=== PATIENT | male | born 1940 | race Caucasian/White ===

== ENCOUNTER 2016-12-04 13:45 | Emergency (ER) | payer OTHER, BC ==
[~2016-12-04] VITALS: Ht 182.9 cm; Wt 76.9 kg
[2016-12-04 13:50] VITALS: TEMP 36.7; Ht 182.9 cm; Wt 76.9 kg
--- NOTE | 2016-12-04 15:18 | EMERGENCY ROOM VISIT NOTE ---
History Report prepared by Vince: Henry Shepard Under the Supervision of: Dr. Asher Emery D.O. First contact with patient: 14:55 Chief Complaint: SHORTNESS OF BREATH Stated Complaint: SOB Nursing Triage Summary: triage note: pt reports shortness of breath since this am. pt reports he was seen by dr owens today and sent to ed for further eval. History of Present Illness The patient is a 76 year old male who presents to the Emergency Room with complaints of an episode of shortness of breath that started around 0730 this morning. He says that the episode lasted all morning, and during the episode, he had constant chest tightness. The patient states that he went to see his family doctor (Dr. Owens) around 2 and a half hours ago, and the doctor suggested that the patient be scanned here for any heart damage. The patient states that currently, he is asymptomatic, and nothing made his symptoms better or worse. He denies any nausea, vomiting, neck pain, back pain, coughing, abdominal pain, leg swelling or leg pain. The patient notes that he has a history of an irregular heartbeat, and last had a stress test a month ago. He notes no recent surgeries or illnesses, nor any history of clots in his leg or lung. He also denies any history of a heart attack. The patient takes daily medications for his diabetes and thyroid issue. He notes that he takes Victoza, but has lost a lot of weight recently, and his electrician journeyman wireman mentioned 2 weeks ago that if the patient's weight dropped below 170, that he would be taken off of the Victoza. Today, the patient weighed 171 at the doctor's office while heavily dressed. = Source of History: patient Onset: 0730 this morning Position: other (global - shortness of breath) Symptom Intensity: all morning Timing: other (episode) Associated Symptoms: + chest pain, No cough, No neck pain, No nausea, No vomiting, No abdominal pain, No back pain Note: Associated symptoms: Currently asymptomatic. Denies leg swelling or leg pain. Review of Systems See HPI for pertinent positives & negatives. A total of 10 systems reviewed and were otherwise negative. Past Medical & Surgical Medical Problems: (1) Diabetes (2) Irregular heart beat Family History Family history omitted secondary to patient's advanced age. Social History Smoking Status: Never Smoker Marital Status: Housing Status: lives with family Occupation Status: employed Current/Historical Medications Scheduled Omeprazole (Prilosec), 40 MG PO DAILY Allergies Uncoded Allergies: MACROBIDES, ERYTHROMYCIN (Allergy, Unknown, 05/29/02) N (Allergy, Unknown, 05/29/02) Physical Exam Vital Signs Date Time Temp Pulse Resp B/P (MAP) Pulse Ox O2 Delivery O2 Flow Rate FiO2 12/04/16 19:02 56 147/70 99 12/04/16 19:00 56 147/70 100 Room Air 12/04/16 16:55 66 20 124/68 99 Room Air 12/04/16 15:20 97 Room Air 12/04/16 15:19 97 Room Air 12/04/16 15:19 97 Room Air 12/04/16 15:05 72 12/04/16 13:50 36.7 88 18 108/71 97 Room Air Physical Exam GENERAL: Patient is awake, alert, and in no acute distress. Patient is resting comfortably and showing no signs of anxiety EYES: The conjunctivae are clear. The pupils are round and reactive. EARS, NOSE, MOUTH AND THROAT: The nose is without any evidence of any deformity. Mucous membranes are moist tongue is midline NECK: The neck is nontender and supple. RESPIRATORY: Normal respiratory effort is noted there is no evidence of wheezing rhonchi or rales CARDIOVASCULAR: Regular rate and rhythm noted there no murmurs rubs or gallops normal S1 normal S2 GASTROINTESTINAL: The abdomen is soft. Bowel sounds are present in all quadrants. Abdomen is nontender MUSCULOSKELETAL/EXTREMITIES: There is no evidence of gross deformity full range of motion is noted in the hips and shoulders SKIN: Trace pedal edema bilaterally. NEUROLOGIC: Patient is awake alert and oriented x3. Medical Decision & Procedures ER Provider Diagnostic Interpretation: X-ray results as stated below per interpretation by me and the radiologist. CHEST ONE VIEW PORTABLE CLINICAL HISTORY: 76 years-old Male presenting with CHEST PAIN. TECHNIQUE: Portable upright AP view of the chest was obtained. COMPARISON: None. FINDINGS: Cardiomediastinal silhouette normal. Focal hyperdensity in the right upper lung may represent a calcified granuloma. No other focal infiltrate. No pleural effusion or pneumothorax. Osseous structures normal. Upper abdomen normal. IMPRESSION: 1. No acute cardiopulmonary disease. 2. Suspected right upper lobe calcified granuloma. Electronically signed by: Adal Call M.D. 12/04/2016 3:49 PM Dictated Date/Time: 12/04/2016 3:48 PM Laboratory Results 12/04/16 15:30 Red Blood Count 4.23, Mean Corpuscular Volume 92.0, Mean Corpuscular Hemoglobin 32.6, Mean Corpuscular Hemoglobin Concent 35.5, Mean Platelet Volume 8.5, Neutrophils (%) (Auto) 62.2, Lymphocytes (%) (Auto) 25.7, Monocytes (%) (Auto) 9.6, Eosinophils (%) (Auto) 1.7, Basophils (%) (Auto) 0.6, Neutrophils # (Auto) 2.93, Lymphocytes # (Auto) 1.21, Monocytes # (Auto) 0.45, Eosinophils # (Auto) 0.08, Basophils # (Auto) 0.03 12/04/16 15:30 Test 12/04/16 15:30 12/04/16 17:25 White Blood Count 4.71 K/uL (4.8-10.8) Red Blood Count 4.23 M/uL (4.7-6.1) Hemoglobin 13.8 g/dL (14.0-18.0) Hematocrit 38.9 % (42-52) Mean Corpuscular Volume 92.0 fL (80-100) Mean Corpuscular Hemoglobin 32.6 pg (25-34) Mean Corpuscular Hemoglobin Concent 35.5 g/dl (32-36) Platelet Count 206 K/uL (130-400) Mean Platelet Volume 8.5 fL (7.4-10.4) Neutrophils (%) (Auto) 62.2 % Lymphocytes (%) (Auto) 25.7 % Monocytes (%) (Auto) 9.6 % Eosinophils (%) (Auto) 1.7 % Basophils (%) (Auto) 0.6 % Neutrophils # (Auto) 2.93 K/uL (1.4-6.5) Lymphocytes # (Auto) 1.21 K/uL (1.2-3.4) Monocytes # (Auto) 0.45 K/uL (0.11-0.59) Eosinophils # (Auto) 0.08 K/uL (0-0.5) Basophils # (Auto) 0.03 K/uL (0-0.2) RDW Standard Deviation 41.0 fL (36.4-46.3) RDW Coefficient of Variation 12.1 % (11.5-14.5) Immature Granulocyte % (Auto) 0.2 % Immature Granulocyte # (Auto) 0.01 K/uL (0.00-0.02) Prothrombin Time 11.5 SECONDS (9.0-12.0) Prothromb Time International Ratio 1.1 (0.9-1.1) Activated Partial Thromboplast Time 24.8 SECONDS (21.0-31.0) Partial Thromboplastin Ratio 1.0 Anion Gap 4.0 mmol/L (3-11) Est Creatinine Clear Calc Drug Dose 58.7 ml/min Estimated GFR () 68.6 Estimated GFR (Non- 59.2 BUN/Creatinine Ratio 17.3 (10-20) Calcium Level 9.1 mg/dl (8.5-10.1) Total Bilirubin 0.4 mg/dl (0.2-1) Direct Bilirubin 0.1 mg/dl (0-0.2) Aspartate Amino Transf (AST/SGOT) 20 U/L (15-37) Alanine Aminotransferase (ALT/SGPT) 27 U/L (12-78) Alkaline Phosphatase 55 U/L (45-117) Total Creatine Kinase 195 U/L (39-308) Creatine Kinase MB 3.8 ng/ml (0.5-3.6) Creatine Kinase MB Ratio 1.9 (0-3.0) Total Protein 7.4 gm/dl (6.4-8.2) Albumin 3.7 gm/dl (3.4-5.0) Lipase 380 U/L (73-393) Troponin I < 0.015 ng/ml (0-0.045) Laboratory results per my review. ECG Indication: SOB/dyspnea Rate (beats per minute): 62 Rhythm: sinus rhythm Findings: 1st degree AV block, no ectopy, other (no acute ST segment abnormalities) Comparison ECG Date: no prior available Change: 2nd ECG: Sinus bradycardia at 52 bpm, no ectopy, no acute ST segment abnormalities, no change from earlier tracing. ED Course 1502: The patient was evaluated in room A10. A complete history and physical examination were performed. 1735: I reevaluated and updated the patient. 8: Upon reevaluation, the patient is resting. I discussed the results and treatment plan with him. He verbalized agreement of the treatment plan. He was discharged home. Medical Decision Differential diagnosis: Etiologies such as infections, reactive airway disease, pneumonia, pneumothorax , COPD, CHF, cardiac ischemia, pulmonary embolism, musculoskeletal, gastrointestinal, as well as others were entertained. Nursing notes reviewed. The patient is a 76-year-old male who presented to the emergency apartment for an evaluation of chest pain. The patient had an episode of chest pain earlier which had since resolved. The patient had an EKG which did not show any acute ischemia. His initial cardiac biomarkers were negative. The patient also had repeat cardiac biomarkers as well as repeat EKG. No significant change was noted. I discussed the patient's laboratory and radiographic studies with him. I also discussed the limitations of the emergency department workup for chest pain with him. He was encouraged to rest and avoid any strenuous activity. He was also encouraged to follow-up with his primary care physician for further evaluation but return to the emergency Department immediately if symptoms change worsen or the need arises. Medication Reconcilliation Current Medication List: was personally reviewed by me Medication reconciliation was done at bedside with patient's paperwork because it was not done in the computer. Blood Pressure Screening Patient's blood pressure: Normal blood pressure Impression Primary Impression: Chest pain Scribe Attestation The scribe's documentation has been prepared under my direction and personally reviewed by me in its entirety. I confirm that the note above accurately reflects all work, treatment, procedures, and medical decision making performed by me. Departure Information Dispostion Home / Self-Care Prescriptions Omeprazole (PRILOSEC) 40 Mg Cap 40 MG PO DAILY, #30 CAP Prov: Asher Emery, 12/04/16 Referrals No Doctor, Assigned (PCP) Patient Instructions ED Chest Pain Atypical Unkn Cause, My [facility] Additional Instructions Continue all medications as prescribed. Rest and avoid any strenuous activity. Follow-up with your doctor for further evaluation. Return to the emergency apartment immediately if symptoms change worsen or need arises. Problem Qualifiers Primary Impression: Chest pain Chest pain type: unspecified Qualified Codes: R07.9 - Chest pain, unspecified
[2016-12-04 15:19] VITALS: O2SAT 97
[2016-12-04 15:48] LABS: BASO % 0.6 %; BASO ABS # 0.03 K/uL (0-0.2); COMPLETE YES; EOS % 1.7 %; HEMATOCRIT 38.9 % (42-52); IG% 0.2 %; LYMPH % 25.7 %; LYMPH ABS # 1.21 K/uL (1.2-3.4); MEAN CORPUSCULAR HEMOGLOBIN 32.6 pg (25-34); MEAN CORPUSCULAR HGB CONC 35.5 g/dl (32-36); MEAN PLATELET VOLUME 8.5 fL (7.4-10.4); MONO % 9.6 %; NEUT % 62.2 %; PLATELET COUNT 206 K/uL (130-400); RED BLOOD COUNT 4.23 M/uL (4.7-6.1); WHITE BLOOD COUNT 4.71 K/uL (4.8-10.8)
--- NOTE | 2016-12-04 15:50 | DIAGNOSTIC IMAGING REPORT ---
CHEST ONE VIEW PORTABLE CLINICAL HISTORY: 76 years-old Male presenting with CHEST PAIN. TECHNIQUE: Portable upright AP view of the chest was obtained. COMPARISON: None. FINDINGS: Cardiomediastinal silhouette normal. Focal hyperdensity in the right upper lung may represent a calcified granuloma. No other focal infiltrate. No pleural effusion or pneumothorax. Osseous structures normal. Upper abdomen normal. IMPRESSION: 1. No acute cardiopulmonary disease. 2. Suspected right upper lobe calcified granuloma. Electronically signed by: Adal Call M.D. 12/04/2016 3:49 PM Dictated Date/Time: 12/04/2016 3:48 PM
[2016-12-04 16:00] LABS: INR 1.1 (0.9-1.1); PROTHROMBIN TIME (PATIENT) 11.5 SECONDS (9.0-12.0)
[2016-12-04 16:08] LABS: ALT/SGPT 27 U/L (12-78); AST/SGOT 20 U/L (15-37); BLOOD UREA NITROGEN 21 mg/dl (7-18); BUN/CREATININE RATIO 17.3 (10-20); CALCIUM 9.1 mg/dl (8.5-10.1); CARBON DIOXIDE 29 mmol/L (21-32); CHLORIDE 107 mmol/L (98-107); GLUCOSE 113 mg/dl (70-99); POTASSIUM 3.5 mmol/L (3.5-5.1); SODIUM 140 mmol/L (136-145)
[2016-12-04 16:13] LABS: ALKALINE PHOSPHATASE 55 U/L (45-117); CKMB/CK RATIO 1.9 (0-3.0)
[2016-12-04] MEDS ORDERED: OMEP40CA41 PO (18:31)
[2016-12-04 19:02] VITALS: BP 147/70; PULSE 56; O2SAT 99
== END 2016-12-04 19:03 | disposition home or self-care (01) ==
LOC: C.EDB 13:45 → C.EDA 19:03
DX: R07.9 Chest pain, unspecified (principal); I44.0 Atrioventricular block, first degree; E11.9 Type 2 diabetes mellitus without complications; Z79.899 Other long term (current) drug therapy; Z88.8 Allergy status to other drugs, medicaments and biological substances

== ENCOUNTER 2021-10-12 10:11 | Inpatient (IN) ==
[2021-10-12] MEDS ORDERED: fentaNYL citrate 100 MCG/2 ML VIAL ONE ×4 (10:31→16:51)
[2021-10-12] MEDS ORDERED: MIDAZOLAM HCL 5 MG/ML 1 ML VIAL ONE (10:31)
--- NOTE | 2021-10-12 10:37 | History & Physical Bridge Note ---
Date of Service October 12, 2021 History & Physical Bridge Note I have examined the patient, reviewed the History & Physical and in the interval since the performance of the History & Physical I have noted the following changes of clinical significance: no changes noted
--- NOTE | 2021-10-12 10:37 | Pre Anesthesia Assessment ---
Date of Service October 12, 2021 Pre Sedation Assessment Vital Signs Temp Pulse Resp BP Pulse Ox 10/12/21 10:24 36.6 C 110 H 16 165/129 H 99 Cardiovascular RRR, no murmur, no edema Additional Comments: pvc Respiratory normal respiratory effort, lungs clear to auscultation Pre-Sedation Airway Assessment Smoking Status: Former smoker Hx Sleep Apnea: No Short, Thick Neck: No Thyromental Distance: > or= 3.5 Finger Breadths Oral Cavity: + Dentures Mallampati Class: III ASA: ASA3 NPO Status Date of Last Intake of Fluids: 10/12/21 Time of Last Intake of Fluids: 07:00 Date of Last Intake of Solid Food: 10/11/21 Procedure Planning Contraindications for Sedation: none Current Medications Reviewed: Yes Notes The planned sedation has been discussed with the patient. Informed Consent was obtained. I have identified the patient, determined the appropriateness of sedation and have assessed the patient immediately prior to the procedure. All medicine(s) and interventions are by my order.
[2021-10-12] MEDS ORDERED: MIDAZOLAM HCL 1 MG/ML 2ML VIAL ONE ×4 (11:51→16:50)
[2021-10-12] MEDS ORDERED: HEPARIN (PORCINE) 1000 UNIT/ML 10 ML (CATH LAB USE ONLY) ONE (12:32)
[2021-10-12] MEDS ORDERED: hydrALAZINE HCL 20 MG/ML VIAL ONE (13:42)
[2021-10-12] MEDS ORDERED: STAT IV Infusion **Titration per Protocol STA (14:32)
[2021-10-12] MEDS ORDERED: AMIODARONE / D5W 150 MG/100 ML BAG IV STA (14:32)
[2021-10-12] MEDS ORDERED: 0.2 MICRON FILTER SET 1 EA IV ONE (14:32)
[2021-10-12] MEDS ORDERED: AMIODARONE IV BOLUS & DRIP IV STA (14:32)
--- NOTE | 2021-10-12 14:37 | Operative Report ---
Post Operative Report Pre & Post Diagnosis Pre: PVC and RVOT VT Post Same Operation Date: 10/12/21 11:00 <No data on this case meets the specified criteria> I identified the patient and participated in the time-out.: Yes Procedure Operation Date: 10/12/21 11:00 Actual Procedures p EPS + Ablation +3D Map for VT - Ruthie Cornejo DO Surgeon Ruthie Cornejo, Piano Machine Operator none Estimated Blood Loss 15 Findings Consistent with Post-Op Diagnosis Specimens none Description of Procedure see official report I attest to the content of the Intraoperative Record and any orders documented therein. Any exceptions are noted below.
--- NOTE | 2021-10-12 14:38 | Post Anesthesia Assessment ---
Date of Service October 12, 2021 Post Sedation Assessment Vital Signs Temp Pulse Resp BP Pulse Ox 10/12/21 10:24 36.6 C 110 H 16 165/129 H 99 Recovery Score Activity: Moves 4 extremities Respiration: Deep Breath/Cough Circulation: +/-20% PreAnes Value Consciousness: Fully Awake Oxygen Saturation: > 92% On Room Air Discharge Sedation Level of Care: Fast Track Phase II Post Sedation Plan On clinical assessment, the patient appears to have tolerated the sedation without complications. Patient is recovering as anticipated. Patient will continue to be monitored by nursing and may be discharged when sedation discharge criteria are met per below protocol. Upon Completions of procedure up to 15 minutes continue every 5 minute vital signs and the P.A.R. score; then discharge to a Phase I or Fast Track to Phase I I per the following guidelines: * Discharge Patient to appropriate Phase II area if PAR is 8 or greater or return to pre- procedure baseline. The post - procedure orders will be as directed. * If PAR score is less than 8 or not return to pre-procedure baseline then patient will follow Phase I monitoring till PAR is reached for Phase II. The Phase I may be done in procedure room or may call to secure a Phase I area. * If naloxone or flumazenil are used for reversal, hold in Phase I for continued monitoring from when last reversal dose was given for a minimum of 60 minutes or longer pending the nurse and/or physician discretion of patient condition before discharge to Phase II. Please call the Sedation Physician to re-evaluate and complete post-note for discharge to Phase II area. Do NOT discharge from procedure sedation or Phase 1 until post- sedation evaluation note is complete by procedure /sedation MD Sedation Discharge Instructions to be given to the patient at discharge to home.
[2021-10-12] MEDS ORDERED: AMIODARONE / D5W 360 MG/200 ML BAG IV ONE (14:42)
[2021-10-12] MEDS ORDERED: AMIODARONE 150MG / 100ML D5W (CATH LAB USE ONLY) ONE (14:55)
[2021-10-12] MEDS ORDERED: AMIODARONE 360MG / 200ML D5W (CATH LAB USE ONLY) ONE (14:55)
[2021-10-12] MEDS ORDERED: ONDANSETRON INJ 2 MG/ML 2 ML VIAL ONE (16:18)
[2021-10-12 17:20] LABS: Albumin Globulin Ratio 1.6 (0.9-2); Albumin Level 3.4 gm/dl (3.4-5.0); BUN Creatinine Ratio 18.9 (10-20); Bilirubin,Total 0.6 mg/dl (0.2-1.0); Calcium 7.4 mg/dl (8.5-10.1); Creatinine Clr Calc Pharmacy 67.2 ml/min; Est GFR (African American) 87.9 ml/min; Est GFR (Non-African American) 75.8 ml/min; Globulin 2.1 gm/dl (2.5-4.0); Potassium 3.7 mmol/L (3.5-5.1); Total Protein 5.5 gm/dl (6.0-8.3)
[2021-10-12 17:32] LABS: Hematocrit (blood only) 34.2 % (42-52); Hemoglobin 11.8 g/dL (14.0-18.0); Mean Corpuscular Hemoglobin 32.4 pg (25-34); Mean Platelet Volume 9.6 fL (7.4-10.4); Platelet Count 216 K/uL (130-400); RDW Coefficient of Variation 12.3 % (11.5-14.5); RDW Standard Deviation 41.7 fL (36.4-46.3); Red Blood Count 3.64 M/uL (4.7-6.1); White Blood Count 15.81 K/uL (4.8-10.8)
[2021-10-12 17:37] LABS: Mean Corpuscular Hgb Conc 34.5 g/dL (32-36)
[2021-10-12] MEDS ORDERED: ATROPINE SULFATE 0.1 MG/ML 10ML SYR IV ONE (17:51)
--- NOTE | 2021-10-12 17:55 | Post Operative Brief Note ---
Cardiology Brief Post Op Date of Surgery October 12, 2021 Pre & Post Diagnosis Pre: pericardial effusion Post: same Operation Date: 10/12/21 11:00 <No data on this case meets the specified criteria> Operation Date: 10/12/21 17:00 <No data on this case meets the specified criteria> Procedure Urgent pericardialcentesis Port Engineer Ruthie Cornejo, DO Fish Peddler none Estimated Blood Loss 250 Findings Consistent with Post-Op Diagnosis
[2021-10-12] MEDS ORDERED: PHARMACY GLYCEMIC MGMT CONSULT PRN (18:04)
[2021-10-12] MEDS ORDERED: ICU PROTOCOL FOR HYPERGLYCEMIA PRN (18:04)
[2021-10-12 18:14] LABS: Basophils # (auto) 0.02 K/uL (0-0.2); Basophils % (auto) 0.1 %; Eosinophils # (auto) 0.02 K/uL (0-0.5); Eosinophils % (auto) 0.1 %; Immature Granulocytes # (auto) 0.03 K/uL (0.00-0.02); Immature Granulocytes % (auto) 0.2 %; Lymphocytes # (auto) 1.21 K/uL (1.2-3.4); Lymphocytes % (auto) 7.7 %; Monocytes # (auto) 1.07 K/uL (0.11-0.59); Monocytes % (auto) 6.8 %; Neutrophils # (auto) 13.46 K/uL (1.4-6.5); Neutrophils % (auto) 85.1 %
[2021-10-12] MEDS ORDERED: ACETAMINOPHEN 1000 MG/100 ML IV IV PRN (18:23)
[2021-10-12] MEDS ORDERED: ONDANSETRON INJ 2 MG/ML 2 ML VIAL IV PRN (18:25)
[2021-10-12] MEDS ORDERED: GLUCOSE 10 TABS/TUBE PO PRN (18:30)
[2021-10-12] MEDS ORDERED: CARBOHYDRATES FOR HYPOGLYCEMIA PO PRN (18:30)
[2021-10-12] MEDS ORDERED: GLUCOSE 40% GEL 15 GM TUBE PO PRN (18:30)
[2021-10-12] MEDS ORDERED: GLUCAGON FOR INJ 1 MG VIAL IM PRN (18:30)
[2021-10-12] MEDS ORDERED: DEXTROSE 50% 50 ML SYRINGE IV PRN (18:30)
[2021-10-12] MEDS ORDERED: ceFAZolin 2000MG 2,000 MG/15 ML SYR IV ONE (19:00)
[2021-10-12] MEDS: ACETAMINOPHEN 1,000 MG/100 ML VIAL IV PRN (19:00)
--- NOTE | 2021-10-12 19:27 | Critical Care Consultation ---
Date of Consultation October 12, 2021 Assessment & Plan (1) Admitted to intensive care unit: Reason Critically Ill: 81-year-old male who is status post pericardial drain placement in the setting of pericardial effusion with tamponade physiology requiring close hemodynamic monitoring. NEURO - * CAM ICU: NEGATIVE * Pain: Fentanyl and acetaminophen as needed CARDIAC/VASCULAR - * Pericardial effusion with findings of tamponade: * s/p pericardial drain placement. * Patient's chest pain and hypotension improved s/p pericardial drain. * Continue to monitor output for any significant increase throughout the night. * Continue to monitor on telemetry. * Frequent PVCs s/p ablation: * Patient appears to be in sinus rhythm on monitor currently. * Continue to monitor for any return of frequent PVCs. * HTN/HLD: * Hold on home meds for now. * Monitor on telemetry. RESPIRATORY - * No h/o pulmonary disease. * Saturating well on 2 L GI/NUTRITION - * NPO tonight RENAL/LYTES - * No significant electrolyte derangements. * Patient received aggressive IVF earlier. Will hold for now. - * Hughes in place - Strict I&Os. ENDO - * DMII * BSGs per unit protocol. ISS --> gtt per unit policy. HEME - * Stable H&H * Trend H&H in the setting of hemopericardium ID - * No immediate concerns for infection at this time. * Trend fever curve. LINES/IV ACCESS - * PIVs x2 * Pericardial drain. * Hughes DVT PROPHYLAXIS - * Hold on chemoprophylaxis s/p pericardial drain w/ hemopericardium. * SCDs I have personally spent 42 minutes of critical care time in the direct management of this patient. This is a life/limb threatening event. This includes time spent evaluating patient, direct bedside care, chart review, placing orders, interpretation of diagnostic studies, discussion with consultants, patient, and family members, as well as other required patient management activities. This time is exclusive of all separately billable procedures, and teaching time and separate from and in addition to any other critical care service time. Thank you for allowing us to participate in the care of this patient. Please re huang to my attending physician's documentation for any further recommendations. (2) Pericardial effusion: (3) Cardiac tamponade: (4) Hypertension: (5) Hyperlipidemia: (6) Diabetes: (7) Hypothyroid: History of Present Illness Attending Physician: Ruthie Cornejo, History of Present Illness Patient is a 81-year-old male with significant past medical history of hypothyroidism, venous insufficiency, type 2 diabetes, hypertension, hyperlipidemia, and a sending aortic aneurysm. Patient has been having ongoing symptoms of shortness of breath with exertion and fatigue. Additionally, patient has had documented PVCs with increasing frequency as well as a drop in h is EF. This prompted reevaluation by electrophysiology who recommends PVC ablation which the patient underwent today. Patient has appeared to have success with PVC ablation, however, while in holding area, patient was noted to have increasing chest pain and hypotension. Stat echocardiogram was performed which demonstrated large pericardial effusion with tamponade physiology. Patient was taken back to the catheterization suite where he underwent placement of pericardial drain. Patient had approximately 200 mL out immediately. Since that drainage has significantly decreased. Patient brought to the ICU for ongoing management status post pericardial drain placement. Upon evaluation in the ICU, the patient is awake, alert, and oriented. He complains of pain in his back and upper chest area. He reports that these are the same symptoms prior to going back to the catheterization suite. He reports that the symptoms have significantly improved. He initially rated his discomfort a 9/10, but status post pericardial drain, he rates his pain a 3 or 4. He does complain of some nausea and hunger. Otherwise his primary complaints are upper chest and upper back pain which have improved. Patient currently denies complaints of headaches, dizziness, lightheadedness, palpitations, visual disturbances, vomiting, abdominal pain, or numbness/weakness to his extremities. Allergies Allergy/AdvReac Type Severity Reaction Status Date / Time erythromycin base AdvReac Rash Verified 10/12/21 14:33 nitrofurantoin AdvReac Rash Verified 10/12/21 14:33 [From Macrobid] Home Medications Medication Instructions Recorded Confirmed Type amiodarone 200 mg tablet 200 mg PO DAILY #30 tab 10/12/21 Rx aspirin 81 mg tablet,delayed 81 mg PO DAILY 10/12/21 10/12/21 History release atorvastatin 20 mg tablet 20 mg PO DAILY 10/12/21 10/12/21 History cyanocobalamin (vitamin B-12) 1,000 mcg PO DAILY 10/12/21 10/12/21 History 1,000 mcg tablet cyclosporine 0.09 % eye drops in a 1 drp OPHTHALMIC (EYE) Q12H 10/12/21 10/12/21 History dropperette ergocalciferol (vitamin D2) 1,000 25 mcg PO DAILY 10/12/21 10/12/21 History unit capsule insulin glargine 100 unit/mL (3 18 unit SUBCUT PM 10/12/21 10/12/21 History mL) subcutaneous pen (Lantus Solostar U-100 Insulin) levothyroxine 125 mcg capsule 125 mcg PO DAILY 10/12/21 10/12/21 History losartan 50 mg tablet 50 mg PO DAILY 10/12/21 10/12/21 History metformin 500 mg tablet,extended 1,000 mg PO BID 10/12/21 10/12/21 History release 24 hr omega-3 fatty acids 1,250 mg PO DAILY 10/12/21 10/12/21 History omeprazole 20 mg capsule,delayed 20 mg PO DAILY 10/12/21 10/12/21 History release polyethylene glycol 3350 17 gram 17 g PO BID 10/12/21 10/12/21 History oral powder packet (Miralax) semaglutide (Ozempic) 0.5 mg SUBCUT WK 10/12/21 10/12/21 History triamcinolone acetonide 0.1 % 1 applic TOPICAL BID PRN 10/12/21 10/12/21 History topical cream Patient History Social History Smoking Status: Former smoker Hx Alcohol Use: Yes Hx Substance Use: No Current Living Situation: Spouse Feels Safe at Home: Yes Safety Concerns: Feels Safe At This Time Review of Systems Review of Systems: A complete 10 point review of systems was reviewed with the patient with pertinent positives and negatives as per history of present illness. All else were negative. Physical Exam Physical Exam: VITAL SIGNS - Vital signs and nursing notes were reviewed. GENERAL - 81-year-old male appearing his stated age who is in no acute distress. Communicates well with provider and answers questions appropriately. HEAD - NC/AT. EYES - PERRL with EOMI bilaterally. Sclera anicteric. Palpebral conjunctiva pink and moist with no injection noted. EARS - No deformities of external structures noted on gross examination bilaterally. NOSE - Midline and without cyanosis. MOUTH/OROPHARYNX - Without perioral cyanosis. Buccal mucosa pink and moist and without leukoplakia. NECK - Neck with FROM. Supple to palpation. LUNGS - Chest wall symmetric without accessory muscle use, intercostals retractions, or central cyanosis. Normal vesicular breath sounds CTA B/L. No wheezes, rales, or rhonchi appreciated. CARDIAC - Pericardial drain in place with bloody drainage from the tube as expected. Dressing site clean, dry, and intact. RRR with S1/S2. No murmur, rubs, or gallops appreciated. No reproducible tenderness to palpation appreciated over the anterior chest wall. ABDOMEN - Abdominal contour flat without pulsations or visible masses. BS normoactive all four quadrants. No tenderness, palpable masses, hepatosplenomegaly, or ascites noted. EXTREMITIES - No clubbing or peripheral cyanosis. No pretibial edema present. +3/5 radial and dorsalis pedis pulses palpated throughout. +5/5 strength noted in UE/LE bilaterally. NEUROLOGIC - Cranial nerves II through XII grossly intact. Sensory intact to light touch throughout. PSYCH - A&Ox3 and cooperates fully with examiner. Pt is very pleasant and interacts well with examiner. Results & Data Results & Data ([facility]) Vital Signs (Past 12 Hours) Vital Signs Temp Pulse Pulse Resp BP BP Pulse Ox 10/12/21 18:45 83 22 97 10/12/21 18:35 36.8 C 10/12/21 18:32 85 13 143/73 H 92 10/12/21 18:31 85 6 L 92 10/12/21 16:46 80 18 83/47 L 98 10/12/21 16:30 83 18 76/45 L 98 10/12/21 16:15 80 18 80/46 L 97 10/12/21 16:00 82 18 78/51 L 98 10/12/21 15:45 78 18 88/48 L 96 10/12/21 15:30 85 18 84/61 L 96 10/12/21 15:15 79 18 91/60 L 96 10/12/21 15:05 84 18 100/63 96 10/12/21 14:45 93 H 18 117/67 98 10/12/21 10:24 36.6 C 110 H 16 165/129 H 99 Coding Level of Care Code Critical Care 1st 30-74 mins Diagnoses Admitted to intensive care unit Z78.9 Pericardial effusion I31.3 Cardiac tamponade I31.4 Hypertension I10 Hyperlipidemia E78.5 Diabetes E11.9 Hypothyroid E03.9 Time Spent (min) 42
[2021-10-12] MEDS ORDERED: fentaNYL citrate 100 MCG/2 ML VIAL IV PRN (19:38)
[2021-10-12] MEDS ORDERED: AMIODARONE / D5W 360 MG/200 ML BAG IV SCH (20:45)
[2021-10-12] MEDS: LANTUS PER UNIT CHARGE SQ SCH (21:14)
[2021-10-12] MEDS: INSULIN ASPART PER UNIT SC SCH (21:15)
[2021-10-13] MEDS: fentaNYL citrate 100 MCG/2 ML VIAL IV PRN ×2 (05:06→08:53)
[2021-10-13 05:55] LABS: Basophils # (auto) 0.01 K/uL (0-0.2); Basophils % (auto) 0.1 %; Hematocrit (blood only) 35.7 % (42-52); Hemoglobin 12.3 g/dL (14.0-18.0); Immature Granulocytes # (auto) 0.03 K/uL (0.00-0.02); Immature Granulocytes % (auto) 0.2 %; Lymphocytes # (auto) 0.98 K/uL (1.2-3.4); Lymphocytes % (auto) 7.1 %; Mean Corpuscular Hgb Conc 34.5 g/dL (32-36); Mean Corpuscular Volume 95.7 fL (80-100); Mean Platelet Volume 8.9 fL (7.4-10.4); Monocytes # (auto) 1.48 K/uL (0.11-0.59); Monocytes % (auto) 10.8 %; Neutrophils # (auto) 11.23 K/uL (1.4-6.5); Neutrophils % (auto) 81.8 %; Platelet Count 189 K/uL (130-400); RDW Coefficient of Variation 12.3 % (11.5-14.5); RDW Standard Deviation 42.8 fL (36.4-46.3); Red Blood Count 3.73 M/uL (4.7-6.1); White Blood Count 13.73 K/uL (4.8-10.8)
[2021-10-13 06:23] LABS: BUN Creatinine Ratio 16.3 (10-20); Calcium 8.1 mg/dl (8.5-10.1); Creatinine Clr Calc Pharmacy 61.3 ml/min; Est GFR (African American) 78.8 ml/min; Magnesium 1.1 mg/dl (1.7-2.4); Potassium 3.9 mmol/L (3.5-5.1)
[2021-10-13] MEDS: LEVOTHYROXINE SODIUM 125 MCG TABLET PO SCH (06:43)
--- NOTE | 2021-10-13 07:18 | XRay Report ---
SINGLE VIEW CHEST CLINICAL HISTORY: Dyspnea FINDINGS: An AP, portable, upright chest radiograph is compared to study dated 12/04/2016. The examina tion is degraded by portable technique and patient rotation. The heart is mildly enlarged. The pulmo nary vasculature is noncongested. There is mild elevation of the right hemidiaphragm with bibasilar a telectasis. The lungs and pleural spaces are otherwise clear. No pneumothorax is seen. The skeletal s tructures are osteopenic. The bony thorax is grossly intact. IMPRESSION: Mild cardiomegaly with no acute cardiopulmonary abnormality identified. ACT 112: Negative or not required by law. Electronically signed by: Cirilo Green M.D. 10/13/2021 7:17 AM
[2021-10-13] MEDS: INSULIN ASPART PER UNIT SC SCH ×4 (07:50→17:43)
[2021-10-13] MEDS: MAGNESIUM SULFATE / D5W 1 GM/100 ML BAG IV SCH ×2 (07:50→09:04)
--- NOTE | 2021-10-13 07:53 | XRay Report ---
XR chest 1V portable CLINICAL HISTORY: f/u COMPARISON STUDY: Chest radiograph October 12, 2021. FINDINGS: Lung volumes are mildly diminished. Mild left basilar retrocardiac opacity is noted. Additi onal linear bibasilar opacities reflect atelectasis. No evidence for pulmonary edema. There is mild c ardiomegaly. IMPRESSION: 1. Left basilar opacity which could reflect pneumonia or atelectasis. Radiographic follow up to ensur e resolution is recommended. Additional linear bibasilar opacities reflect atelectasis. 2. Mild cardiomegaly. No evidence for pulmonary edema. ACT 112: Negative or not required by law. Electronically signed by: Rigoberto Jasso M.D. 10/13/2021 7:52 AM
--- NOTE | 2021-10-13 09:05 | Electrocardiogram Report ---
Test Reason : Blood Pressure : / mmHG Vent. Rate : 084 BPM Atrial Rate : 084 BPM P-R Int : 236 ms QRS Dur : 154 ms QT Int : 434 ms P-R-T Axes : 058 -53 055 degrees QTc Int : 512 ms Sinus rhythm with 1st degree A-V block Right bundle branch block Left anterior fascicular block Abnormal ECG When compared with ECG of 04-DEC-2016 17:20, Vent. rate has increased BY 32 BPM (RBBB and left anterior fascicular block) is now Present Confirmed by Omid Sánchez ([id number]) on 10/13/2021 9:05:33 AM Referred By: Ruthie Cornejo Confirmed By:Omid Sánchez
--- NOTE | 2021-10-13 09:22 | Operative Report (OR) ---
DATE OF PROCEDURE: 10/12/2021. PREOPERATIVE DIAGNOSES: Premature ventricular contractions and right ventricular outflow tract ventricular tachycardia. POSTOPERATIVE DIAGNOSES: Premature ventricular contractions and right ventricular outflow tract ventricular tachycardia. PROCEDURE: 3D mapping of PVCs in the right ventricular outflow tract and the left ventricular outflow tract and PVC ablation under fluoroscopic guidance, 3D mapping of the His bundle region. SURGEON: Ruthie Cornejo DO. DRAWER WAXER: None. ANESTHESIA: Monitored conscious sedation administered under my supervision by Isi Rojas. Start time 1113, end time 1430. A total of 11 mg of Versed, 250 mcg of fentanyl. INTRAVENOUS FLUIDS: 700 mL. ANTIBIOTICS: None. CONTRAST: None. CONDITION: Good. COMPLICATIONS: A delayed pericardial effusion. BLOOD LOSS: 10 mL. URINE OUTPUT: Not applicable. SPECIMENS: None. FINDINGS: See below. DRAINS: None. 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 CONSENT: Consent was obtained prior to the patient going into the electrophysiology lab. The patient was informed of the risks, benefits, and alternatives to the procedure. Risks include, but not limited to, sudden cardiac , cardiac arrhythmias, cerebrovascular accident, myocardial infarction, injury to the blood vessels, chamber of the heart or the [place] electrical system where he would need a permanent pacemaker, bleeding and infection. The patient understood these risks and agreed to the procedure as planned. Informed consent was obtained. DESCRIPTION OF PROCEDURE: The patient was brought into the electrophysiology lab in a fasting state. He was connected to continuous cardiac monitoring. A time- out was performed to ensure patient identity and procedure correctly. He was prepped and draped over the bilateral groins in normal surgical standard fashion. Monitored conscious sedation was given throughout the procedure for patient's comfort level. [place] precautions were maintained throughout the procedure. 10 mL of 1% lidocaine were given in the right femoral groin for local anesthesia. Then, using the modified Seldinger technique, venous access was obtained through a needlestick without any problems. A guidewire was inserted without any resistance. Then, a short 8-Monegasque sheath was inserted over the guidewire without any resistance. Then, a PentaRay catheter was advanced, I was having difficulty getting it up into the RVOT. I ended up swapping out my short 8-Monegasque sheath for a long SRO sheath. This helped a little bit and I was able to do a little bit of RVOT 3D mapping of the PVCs using the PentaRay. The earlier sites were around the posterior septal side of the RVOT. I then swapped out for the ablation catheter, which was a 4-mm DF curved ThermoCool SmartTouch catheter and 3D map to His bundle cloud.. I then did further 3D mapping of the RVOT. There were times where I had pre-QRS of about 20 milliseconds and somewhat decent unipolar QS signal and my pace maps were not bad, they were in the mid 90s. The first time I had when on ablation at 35 portillo, I did suppress and looked like almost got rid off the PVCs. I stayed on the circulation for about a minute and then gave a few more chambers in that area and then the PVCs did start returning about 3-4 minutes, so I did further mapping and we did go a little bit more posterior in the RVOT septal site on either side and I gave some more chambers, occasionally to that I had some decent signals, but it seemed that I still was having a few occasional PVCs. So, then I opted to confirm that may be I was just suppressing them and they were more stemming from the left side of the outflow tract. So, I then got right femoral arterial access without any problems and the guidewire was inserted without any resistance. An 8-Monegasque sheath was inserted through the guidewire without any resistance. Guidewire and dilator removed. Then, the ablation catheter was advanced retrograde through the aorta. Of note, the patient at this point had already gotten a 1000 of IV heparin and ACTs were monitored throughout the case from thereon. I then gave 3D mapping of the LVOT and I found that I was sometimes a little bit earlier, maybe 25-30 milliseconds and I did not have the best QS signal in my unipolars, but in this more earlier spot that was right across from where I had burnt from the RVOT, I did give 2-4 very short radiofrequency ablations at 30 portillo, but these never suppressed the PVCs, so I opted to go back to the RVOT. I went back into the RVOT. I was still having difficulty swapping the catheter up into the RVOT probably due to his moderate tricuspid regurg. I ended up swapping out the sheath for an SR1, came back in and started doing more 3D mapping along the posterior wall area. Again, a little bit more posterior on the septum likely more chambers at 35 portillo. Of note, his blood pressure remained stable throughout the case and then towards the end of the case, his blood pressure was actually elevated in the 200s and he was having more PVCs. I finally after multiple attempts opted to abort the case. So, I swapped the SR1 sheath out for a short 8-Monegasque sheath and then the sheaths were left in the groin as his ACT was still on the higher side and he was brought into the holding area. It was later in hold about 40 minutes after the case in holding that his blood pressure had dropped. It did coincide right around the time when I gave him IV amiodarone bolus, so an ultrasound stat echo was performed, which did show a moderate pericardial effusion. Unfortunately, he was never tachycardia and his blood pressure was on the low side sometimes systolic mainly in the 80s. Please defer to the rest of the second op note about further treatment for the pericardial effusion. IMPRESSION: 1. Partially successful PVC ablation from the right ventricular outflow tract, but of note, it seems that after the pericardial effusion was tapped, his PVCs actually resolved, so it may have been more successful than I realized. 2. Pericardial effusion, pending tamponade. PLAN: Again, the patient was initially doing fine when he left the lab that was in holding when he started showing evidence of pericardial tamponade. Again, please refer to the other op note for pericardiocentesis and the patient will be admitted to the ICU. Initially, again, I was giving him amiodarone, but then after the treatment with pericardiocentesis, it seems that the PVCs have resolved. We will get another limited echo in the morning. His groin sheaths were pulled once the ACT was less than 150 and manual compression was used to establish hemostasis. Job ID: [id number] [facility]
--- NOTE | 2021-10-13 09:23 | Critical Care Progress Note ---
Date of Service October 13, 2021 Assessment & Plan (1) Admitted to intensive care unit: Plan: Reason Critically Ill: 81-year-old male who is status post pericardial drain placement in the setting of pericardial effusion with tamponade physiology requiring close hemodynamic monitoring. NEURO - * CAM ICU: NEGATIVE * Pain: Fentanyl and acetaminophen as needed CARDIAC/VASCULAR - * Pericardial effusion with findings of tamponade: * s/p pericardial drain removed * Continue to monitor on telemetry. * Frequent PVCs s/p ablation: * Patient appears to be in sinus rhythm on monitor currently. * Continue to monitor for any return of frequent PVCs. * HTN/HLD: * restart home meds for now. * Monitor on telemetry. RESPIRATORY - * No h/o pulmonary disease. * Saturating well on 2 L GI/NUTRITION - * regular diet RENAL/LYTES - * No significant electrolyte derangements. * Patient received aggressive IVF earlier. Will hold for now. - * Hughes in place - Strict I&Os. ENDO - * DMII * BSGs per unit protocol. ISS --> gtt per unit policy. HEME - * Stable H&H * Trend H&H in the setting of hemopericardium ID - * No immediate concerns for infection at this time. * Trend fever curve. LINES/IV ACCESS - * PIVs x2 DVT PROPHYLAXIS - * Hold on chemoprophylaxis s/p pericardial drain w/ hemopericardium. * SCDs stable for downgrade out of ICU (2) Pericardial effusion: (3) Cardiac tamponade: (4) Hypertension: (5) Hyperlipidemia: (6) Diabetes: (7) Hypothyroid: Admission and Anticipated Discharge Date Admission Date: October 12, 2021 Subjective Patient requesting food no chest pain nor shortness of breath Physical Exam Physical Exam: General: Alert. nontoxic. Skin: Warm, dry, Head: Atraumatic Ears, nose, mouth and throat: airway patent Cardiovascular: Normal peripheral perfusion Chest: No shadowing on dressing Respiratory: no respiratory distress Gastrointestinal: Non distended Musculoskeletal: No deformity Results & Data Results & Data ([facility]) Vital Signs (Past 12 Hours) Vital Signs Temp Pulse Resp BP Pulse Ox 10/13/21 08:00 37.2 C 76 23 122/70 96 10/13/21 07:00 94 H 23 122/71 98 10/13/21 06:00 74 24 117/63 95 06/30/22 05:00 83 18 130/82 96 10/13/21 04:00 37 C 74 15 107/68 94 10/13/21 03:00 69 14 136/75 95 10/13/21 02:00 72 13 132/71 94 10/13/21 01:00 84 19 137/77 95 10/13/21 00:00 81 19 133/72 97 10/12/21 23:00 79 16 120/68 96 10/12/21 22:00 81 21 125/76 97 Critical Care Results & Data Vital Signs (Past 12 Hours) Vital Signs Temp Pulse Resp BP Pulse Ox 10/13/21 08:00 37.2 C 76 23 122/70 96 10/13/21 07:00 94 H 23 122/71 98 10/13/21 06:00 74 24 117/63 95 10/13/21 05:00 83 18 130/82 96 10/13/21 04:00 37 C 74 15 107/68 94 10/13/21 03:00 69 14 136/75 95 10/13/21 02:00 72 13 132/71 94 10/13/21 01:00 84 19 137/77 95 10/13/21 00:00 81 19 133/72 97 10/12/21 23:00 79 16 120/68 96 10/12/21 22:00 81 21 125/76 97 Lab & Micro Results (Past 24 Hours) RBC 3.73 M/uL (4.7-6.1) L 10/13/21 WBC 13.73 K/uL (4.8-10.8) H 10/13/21 Hgb 12.3 g/dL (14.0-18.0) L 10/13/21 Hct 35.7 % (42-52) L 10/13/21 MCV 95.7 fL (80-100) 10/13/21 MCH 33.0 pg (25-34) 10/13/21 MCHC 34.5 g/dL (32-36) 10/13/21 RDW Standard Deviation 42.8 fL (36.4-46.3) 10/13/21 RDW Coefficient of Variation 12.3 % (11.5-14.5) 10/13/21 Plt Count 189 K/uL (130-400) 10/13/21 MPV 8.9 fL (7.4-10.4) 10/13/21 Neutrophils (%) (Auto) 81.8 % 10/13/21 Lymphocytes (%) (Auto) 7.1 % 10/13/21 Monocytes # (Auto) 1.48 K/uL (0.11-0.59) H 10/13/21 Eosinophils # (Auto) 0.00 K/uL (0-0.5) 10/13/21 Immature Granulocyte % (Auto) 0.2 % 10/13/21 Neutrophils # (Auto) 11.23 K/uL (1.4-6.5) H 10/13/21 Lymphocytes # (Auto) 0.98 K/uL (1.2-3.4) L 10/13/21 Monocytes # (Auto) 1.48 K/uL (0.11-0.59) H 10/13/21 Eosinophils # (Auto) 0.00 K/uL (0-0.5) 10/13/21 Basophils # (Auto) 0.01 K/uL (0-0.2) 10/13/21 Immature Granulocyte # (Auto) 0.03 K/uL (0.00-0.02) H 10/13/21 Na 136 mmol/L (136-145) 10/13/21 K 3.9 mmol/L (3.5-5.1) 10/13/21 Cl 102 mmol/L (98-107) 10/13/21 CO2 27 mmol/L (21-32) 10/13/21 Anion Gap 7 (3-11) 10/13/21 BUN 17 mg/dl (6-23) 10/13/21 Creatinine 1.04 mg/dl (0.6-1.4) 10/13/21 Estimated GFR ( Amer) 78.8 ml/min 10/13/21 Estimated GFR (Non-Af Amer) 68.0 ml/min 10/13/21 BUN/Creatinine Ratio 16.3 (10-20) 10/13/21 Glu 136 mg/dl (70-99(Fasting)) H 10/13/21 Ca 8.1 mg/dl (8.5-10.1) L 10/13/21 Phosphorus Level 3.0 mg/dl (2.5-4.9) 10/13/21 Total Bilirubin 0.6 mg/dl (0.2-1.0) 10/12/21 AST 32 U/L (13-39) 10/12/21 ALT 16 U/L (7-52) 10/12/21 Alkaline Phosphatase 33 U/L (34-104) L 10/12/21 TP 5.5 gm/dl (6.0-8.3) L 10/12/21 Albumin 3.4 gm/dl (3.4-5.0) 10/12/21 Globulin 2.1 gm/dl (2.5-4.0) L 10/12/21 Albumin/Globulin Ratio 1.6 (0.9-2) 10/12/21 Mg 1.1 mg/dl (1.7-2.4) L 10/13/21 05:40 10/13/21 Calcium Level 8.1 mg/dl (8.5-10.1) L 10/13/21 05:40 10/13/21 Diagnostic Findings (Past 24 Hours) Chest X-Ray 10/12/21 22:01 SINGLE VIEW CHEST CLINICAL HISTORY: Dyspnea FINDINGS: An AP, portable, upright chest radiograph is compared to study dated 12/04/2016. The examination is degraded by portable technique and patient rotation. The heart is mildly enlarged. The pulmonary vasculature is noncongested. There is mild elevation of the right hemidiaphragm with bibasilar atelectasis. The lungs and pleural spaces are otherwise clear. No pneumothorax is seen. The skeletal structures are osteopenic. The bony thorax is grossly intact. IMPRESSION: Mild cardiomegaly with no acute cardiopulmonary abnormality identified. ACT 112: Negative or not required by law. Electronically signed by: Cirilo Green M.D. 10/13/2021 7:17 AM Chest X-Ray 10/13/21 07:00 XR chest 1V portable CLINICAL HISTORY: f/u COMPARISON STUDY: Chest radiograph October 12, 2021. FINDINGS: Lung volumes are mildly diminished. Mild left basilar retrocardiac opacity is noted. Additional linear bibasilar opacities reflect atelectasis. No evidence for pulmonary edema. There is mild cardiomegaly. IMPRESSION: 1. Left basilar opacity which could reflect pneumonia or atelectasis. Radiographic follow up to ensure resolution is recommended. Additional linear bibasilar opacities reflect atelectasis. 2. Mild cardiomegaly. No evidence for pulmonary edema. ACT 112: Negative or not required by law. Electronically signed by: Rigoberto Jasso M.D. 10/13/2021 7:52 AM I & O Totals 24 Hours 10/12/21 10/13/21 10/14/21 06:59 06:59 06:59 Intake Total 317.105 / 317.105 61.667 / 61.667 Output Total 1385 / 1385 75 / 75 Balance -1067.895 / -1067.895 -13.333 / -13.333 Cumulative 09/21/21 10:09 thru 10/13/21 09:11 Intake Total 378.772 Output Total 1460 Balance -1081.228 RT Ventilator Mngmt (Last Documented) Ventilator Ordered Settings Respiratory Rate 23 10/13/21 08:00 Ventilator - PT Measurements Respiratory Rate 23 Coding Level of Care Code 65454 Subseq Obs Care Lvl 3 Diagnoses Admitted to intensive care unit Z78.9 Pericardial effusion I31.3 Cardiac tamponade I31.4 Hypertension I10 Hyperlipidemia E78.5 Diabetes E11.9 Hypothyroid E03.9
--- NOTE | 2021-10-13 09:35 | Operative Report (OR) ---
DATE OF PROCEDURE: 10/12/2021. PREOPERATIVE DIAGNOSES: Pericardial effusion after premature ventricular contractions ablation. POSTOPERATIVE DIAGNOSES: Pericardial effusion after premature ventricular contractions ablation. PROCEDURE: Semi-emergent pericardiocentesis under fluoroscopic and echocardiogram imaging. SURGEON: Ruthie Cornejo DO. ASSISTANT PROFESSOR OF DRAMA: None. ANESTHESIA: Monitored conscious sedation administered under my supervision by Isi Rojas. Start time 1714, end time 1748, a total of 25 mcg of fentanyl. INTRAVENOUS FLUIDS: 1500 mL. ANTIBIOTICS: None. COMPLICATIONS: None. CONDITION: Stable. URINE OUTPUT: Not applicable. SPECIMENS: None. DRAINS: None. IV FLUIDS: Deferred to the nursing notes. BLOOD LOSS: Total of 300 mL. CONSENT: Consent was obtained prior to the patient going into the cardiac ammunition assembly ii laborer. Of note, the trevor tineo has some conscious sedation from the PVC ablation, so I took the consent through his with the nursing staff confirming it, informing them that the potential risks are injury to the blood vess els. DESCRIPTION OF PROCEDURE: The patient was brought into the cardiac ammunition assembly ii laborer in a fasting state. He was connected to continuous cardiac monitoring. A time-out was performed to ensure patient identity and procedure correctly. He was prepped and draped over the subxiphoid area and the left chest area in a normal surgical standard fashion. Monitored conscious sedation was given throughout the procedu re for patient's comfort level, unit precautions were maintained throughout the procedure. 10 mL of 1% lidocaine were given for local anesthesia in the subxiphoid area. Then, using the perica rdiocentesis kit under fluoroscopic guidance as well as echocardiogram guidance, a pericardiocentesis was performed. I started getting blood return with my needle and then I passed a wire up and under x-ray confirmed that the wire was in the pericardium and not in the right ventricle, as well as I saw this under echocardiogram. Then, a dilator was advanced over the guidewire and then that was remove d and a pigtail catheter was advanced up into the pericardium. Then, the wire was pulled out and I hui hen connected the pigtail catheter to the bag and was able to pull off about 250 mL right away after 100 mL seeing an increase in his aortic pressure right away and improvement of the effusion under flu oroscopic guidance. Ultimately, I pulled off about 250 mL. I then sutured down the pigtail catheter and then placed a dressing over it. We then placed the pigtail catheter to kind of like a pseudo-pr essure bag and I did probably pull off the last remaining 100 mL of blood. I did another few ultraso und pictures on with the agricultural engineering technician and saw that the effusion was all gone. It was at this point that the patient's ACT was down, so we pulled the femoral arterial and femoral vein in his groin site joseph t was there from the ablation catheter. IMPRESSION: Successful semi-emergent pericardiocentesis under fluoroscopic guidance along with echoc ardiogram guidance. We will admit to the ICU, antibiotics given Ancef since he has had multiple proc edures now today. Of note, I also have not seen any PVCs. Job ID: [id number]
--- NOTE | 2021-10-13 09:35 | Cardiology Progress Note ---
Date of Service October 13, 2021 Assessment & Plan (1) Pericardial effusion: (2) Cardiac tamponade: Plan: The pericardial catheter was successfully removed this morning. I think later this morning if the patient remained stable a diet can be started. Also if all goes well he can be out of bed later today. He has had no ectopy on telemetry. Overall he is doing well. I would plan on him remaining in the hospital through today. Admission and Anticipated Discharge Date Admission Date: October 12, 2021 Subjective The patient did well overnight. He had about a 100 cc of pericardial bloody fluid after the catheter was placed in the ICU. Minimal drainage this morning. The echocardiogram is markedly improved. No current complaints. Review of Systems Review of Systems: Review of Systems: See HPI for pertinent positives. All other 10 point review of systems are negative. Physical Exam Physical Exam: General: no acute distress and stated age Head: normocephalic, no masses, lesions, tenderness or abnormalities Eyes: conjunctiva are pink and non-injected, sclera clear Neck: supple, no adenopathy, no bruits, normal jugular venous pulse, no hepato jugular reflux Chest: normal shape and normal respiratory effort Lungs: clear to auscultation and percussion Cardiac Exam: - regular rate & rhythm, no murmurs gallops or rubs - normal S1, normal S2, pericardial catheter in good position Pulses: 2(+) throughout Abdomen: abdomen soft, non-tender, no abnormal masses and no hepatosplenomegaly Musculoskeletal: no gait disturbance, no joint inflammation, no deforming arthritis Extremities: no edema and no cyanosis Neuro: grossly normal exam Results & Data ([facility]) Vital Signs (Past 12 Hours) Vital Signs Temp Pulse Resp BP Pulse Ox 10/13/21 08:00 37.2 C 76 23 122/70 96 10/13/21 07:00 94 H 23 122/71 98 10/13/21 06:00 74 24 117/63 95 10/13/21 05:00 83 18 130/82 96 10/13/21 04:00 37 C 74 15 107/68 94 10/13/21 03:00 69 14 136/75 95 10/13/21 02:00 72 13 132/71 94 10/13/21 01:00 84 19 137/77 95 10/13/21 00:00 81 19 133/72 97 10/12/21 23:00 79 16 120/68 96 10/12/21 22:00 81 21 125/76 97 Laboratory Results Laboratory Results - last 24 hr 10/12/21 10/12/21 10/12/21 12:50 13:05 13:17 WBC RBC Hgb Hct MCV MCH MCHC RDW Std Deviation RDW Coeff of [place] Plt Count MPV Immature Gran % (Auto) Neut % (Auto) Lymph % (Auto) [place] % (Auto) Eos % (Auto) Baso % (Auto) Neut # (Auto) Lymph # (Auto) [place] # (Auto) Eos # (Auto) Baso # (Auto) Immature Gran # (Auto) Activ Coag Time Kaolin 260 H 271 H 248 H Sodium Potassium Chloride Carbon Dioxide Anion Gap BUN Creatinine Est Cr Clr Drug Dosing Est GFR ( Amer) Est GFR (Non-Af Amer) BUN/Creatinine Ratio Glucose POC Glucose Calcium Phosphorus Magnesium Total Bilirubin AST ALT Alkaline Phosphatase Total Protein Albumin Globulin Albumin/Globulin Ratio Nasal Screen MRSA (PCR) Blood Type Antibody Screen 10/12/21 10/12/21 10/12/21 14:22 16:51 16:51 WBC 15.81 H RBC 3.64 L Hgb 11.8 L Hct 34.2 L MCV 94.0 MCH 32.4 MCHC 34.5 RDW Std Deviation 41.7 RDW Coeff of [place] 12.3 Plt Count 216 MPV 9.6 Immature Gran % (Auto) 0.2 Neut % (Auto) 85.1 Lymph % (Auto) 7.7 [place] % (Auto) 6.8 Eos % (Auto) 0.1 Baso % (Auto) 0.1 Neut # (Auto) 13.46 H Lymph # (Auto) 1.21 [place] # (Auto) 1.07 H Eos # (Auto) 0.02 Baso # (Auto) 0.02 Immature Gran # (Auto) 0.03 H Activ Coag Time Kaolin 219 H Sodium Potassium Chloride Carbon Dioxide Anion Gap BUN Creatinine Est Cr Clr Drug Dosing Est GFR ( Amer) Est GFR (Non-Af Amer) BUN/Creatinine Ratio Glucose POC Glucose Calcium Phosphorus Magnesium Total Bilirubin AST ALT Alkaline Phosphatase Total Protein Albumin Globulin Albumin/Globulin Ratio Nasal Screen MRSA (PCR) Blood Type A Positive Antibody Screen NEGATIVE 10/12/21 10/12/21 10/12/21 16:51 18:35 18:58 WBC RBC Hgb Hct MCV MCH MCHC RDW Std Deviation RDW Coeff of [place] Plt Count MPV Immature Gran % (Auto) Neut % (Auto) Lymph % (Auto) [place] % (Auto) Eos % (Auto) Baso % (Auto) Neut # (Auto) Lymph # (Auto) [place] # (Auto) Eos # (Auto) Baso # (Auto) Immature Gran # (Auto) Activ Coag Time Kaolin Sodium 137 Potassium 3.7 Chloride 109 H Carbon Dioxide 20 L Anion Gap 8 BUN 18 Creatinine 0.95 Est Cr Clr Drug Dosing 67.2 Est GFR ( Amer) 87.9 Est GFR (Non-Af Amer) 75.8 BUN/Creatinine Ratio 18.9 Glucose 166 H POC Glucose 153 H Calcium 7.4 L Phosphorus Magnesium Total Bilirubin 0.6 AST 32 ALT 16 Alkaline Phosphatase 33 L Total Protein 5.5 L Albumin 3.4 Globulin 2.1 L Albumin/Globulin Ratio 1.6 Nasal Screen MRSA (PCR) Negative Blood Type Antibody Screen 10/12/21 10/13/21 10/13/21 21:04 05:40 05:40 WBC 13.73 H RBC 3.73 L Hgb 12.3 L Hct 35.7 L MCV 95.7 MCH 33.0 MCHC 34.5 RDW Std Deviation 42.8 RDW Coeff of [place] 12.3 Plt Count 189 MPV 8.9 Immature Gran % (Auto) 0.2 Neut % (Auto) 81.8 Lymph % (Auto) 7.1 [place] % (Auto) 10.8 Eos % (Auto) 0.0 Baso % (Auto) 0.1 Neut # (Auto) 11.23 H Lymph # (Auto) 0.98 L [place] # (Auto) 1.48 H Eos # (Auto) 0.00 Baso # (Auto) 0.01 Immature Gran # (Auto) 0.03 H Activ Coag Time Kaolin Sodium 136 Potassium 3.9 Chloride 102 Carbon Dioxide 27 Anion Gap 7 BUN 17 Creatinine 1.04 Est Cr Clr Drug Dosing 61.3 Est GFR ( Amer) 78.8 Est GFR (Non-Af Amer) 68.0 BUN/Creatinine Ratio 16.3 Glucose 136 H POC Glucose 153 H Calcium 8.1 L Phosphorus 3.0 Magnesium 1.1 L Total Bilirubin AST ALT Alkaline Phosphatase Total Protein Albumin Globulin Albumin/Globulin Ratio Nasal Screen MRSA (PCR) Blood Type Antibody Screen 10/13/21 07:38 WBC RBC Hgb Hct MCV MCH MCHC RDW Std Deviation RDW Coeff of [place] Plt Count MPV Immature Gran % (Auto) Neut % (Auto) Lymph % (Auto) [place] % (Auto) Eos % (Auto) Baso % (Auto) Neut # (Auto) Lymph # (Auto) [place] # (Auto) Eos # (Auto) Baso # (Auto) Immature Gran # (Auto) Activ Coag Time Kaolin Sodium Potassium Chloride Carbon Dioxide Anion Gap BUN Creatinine Est Cr Clr Drug Dosing Est GFR ( Amer) Est GFR (Non-Af Amer) BUN/Creatinine Ratio Glucose POC Glucose 109 H Calcium Phosphorus Magnesium Total Bilirubin AST ALT Alkaline Phosphatase Total Protein Albumin Globulin Albumin/Globulin Ratio Nasal Screen MRSA (PCR) Blood Type Antibody Screen Medications Administered Current Inpatient Medications Dextrose (Dextrose 50% 50 Ml Syringe) 25 - 50 ml IV UD PRN; Protocol PRN Reason: Hypoglycemia Protocol Stop: 11/11/21 18:29 Fentanyl Citrate (Fentanyl Citrate 100 Mcg/2 Ml Vial) 50 mcg IV Q2H PRN PRN Reason: Pain Stop: 10/26/21 19:37 Last Admin: 10/13/21 08:53 Dose: 50 mcg Documented by: Glucagon (Glucagon For Inj 1 Mg Vial) 1 mg IM UD PRN; Protocol PRN Reason: Hypoglycemia Protocol Stop: 11/11/21 18:29 Glucose (Glucose 40% Gel 15 Gm Tube) 15 - 30 gm PO UD PRN; Protocol PRN Reason: Hypoglycemia Protocol Stop: 11/11/21 18:29 Glucose (Glucose 10 Tabs/Tube) 4 - 8 tabs PO UD PRN; Protocol PRN Reason: Hypoglycemia Protocol Stop: 11/11/21 18:29 Acetaminophen (Ofirmev) 1,000 mg in 100 mls @ 400 mls/hr IV Q6H PRN; Protocol PRN Reason: pain Stop: 10/15/21 18:42 Last Infusion: 10/12/21 19:30 Dose: Infused Documented by: Magnesium Sulfate/Dextrose (Magnesium Sulfate / D5w) 1 gm in 100 mls @ 50 mls/hr IV Q2H PILO Stop: 10/13/21 10:59 Last Admin: 10/13/21 09:04 Dose: 50 mls/hr Documented by: Insulin Aspart (Insulin Aspart Per Unit) 0 units SC ACHS PILO Stop: 11/11/21 20:59 Last Admin: 10/13/21 07:50 Dose: Not Given Documented by: Insulin Glargine (Lantus Per Unit Charge) 18 units SQ HS [facility] Stop: 11/11/21 20:59 Last Admin: 10/12/21 21:14 Dose: 18 units Documented by: Levothyroxine Sodium (Levothyroxine Sodium 125 Mcg Tablet) 125 mcg PO DAILYBB [facility] Stop: 11/12/21 06:29 Last Admin: 10/13/21 06:43 Dose: 125 mcg Documented by: Miscellaneous (Carbohydrates For Hypoglycemia ) 15 - 30 gm PO UD PRN PRN Reason: Hypoglycemia Treatment Stop: 11/11/21 18:29 Miscellaneous Information (Pharmacy Glycemic Mgmt Consult) 1 ea N/A UD PRN PRN Reason: Consult Stop: 11/11/21 18:03 Ondansetron HCl (Ondansetron Inj 2 Mg/Ml 2 Ml Vial) 4 mg IV Q6H PRN PRN Reason: Nausea And Vomiting Stop: 11/11/21 18:24
[2021-10-13] MEDS ORDERED: TRIAMCINOLONE ACET 0.1% CR 15 GM TUBE TOP PRN (10:37)
[2021-10-13] MEDS ORDERED: NON-FORMULARY MEDICATION (Semaglutide [Ozempic] 0.25 mg or 0.5 mg(2 mg/1.5 mL) Pen Injecto SQ SCH (10:45)
[2021-10-13] MEDS: ACETAMINOPHEN 1,000 MG/100 ML VIAL IV PRN ×2 (10:57→20:10)
--- NOTE | 2021-10-13 12:32 | Pharmacy Report ---
Pharmacy Glycemic Short Note 2 - Date of Service October 13, 2021 - Glycemic Short BSG Results (Last 24 hours): 10/12/21 10/12/21 10/12/21 16:51 18:58 21:04 Glucose 166 H POC Glucose 153 H 153 H 10/13/21 10/13/21 10/13/21 05:40 07:38 11:12 Glucose 136 H POC Glucose 109 H 166 H OUTPATIENT ANTIDIABETIC REGIMEN: * Lantus 18 units SC qpm * Metformin 1g BID * Ozempic 0.5mg qweek * A1c: pending ASSESSMENT: * Patient admitted to ICU s/p pericardial drain placement in the setting of pericardial effusion with tamponade * Patient well controlled using home lantus dose and moderately stress novolog scale thus far. Fasting BSG was 109 mg/dL this morning. Patient was ordered a diet this morning but only 9 g carbs documented as consumed at lunch. Will continue with current regimen and monitor PO intake. PLAN FOR INPATIENT GLYCEMIC CONTROL: * Hold outpatient oral diabetes medications * Basal insulin * Lantus 18 units SQ HS * Bolus insulin * NovoLog per scale ACHS or Q6hrs while NPO * Goal Range: Low 110 mg/dL - High 140 mg/dL * Correction Factor: 25 mg/dL/unit * Nutritional / Prandial insulin per carb ratio of 1 unit per 10 grams CHO consumed
--- NOTE | 2021-10-13 12:59 | Electrocardiogram Report ---
Test Reason : Blood Pressure : / mmHG Vent. Rate : 081 BPM Atrial Rate : 081 BPM P-R Int : 196 ms QRS Dur : 150 ms QT Int : 436 ms P-R-T Axes : 047 -45 041 degrees QTc Int : 506 ms Normal sinus rhythm Right bundle branch block Left anterior fascicular block Minimal voltage criteria for LVH, may be normal variant Abnormal ECG When compared with ECG of 12-OCT-2021 18:47, PA interval has decreased Confirmed by Omid Sánchez ([id number]) on 10/13/2021 12:59:02 PM Referred By: Ruthie Cornejo Confirmed By:Omid Sánchez
[2021-10-13] MEDS: POLYETHYLENE (MIRALAX) 17 GM PACK PO SCH (20:30)
[2021-10-13] MEDS: LANTUS PER UNIT CHARGE SQ SCH (20:30)
[2021-10-13] MEDS ORDERED: INSULIN GLARGINE 100 UNIT/ML SQ SCH (21:00)
[2021-10-13] MEDS ORDERED: metFORMIN HCL ER 500 MG TABCR PO SCH (21:00)
[2021-10-13] MEDS ORDERED: INSULIN SQ SCH (21:00)
[2021-10-14] MEDS: ACETAMINOPHEN 1,000 MG/100 ML VIAL IV PRN (05:23)
[2021-10-14] MEDS: LEVOTHYROXINE SODIUM 125 MCG TABLET PO SCH (05:26)
[2021-10-14] MEDS: POLYETHYLENE (MIRALAX) 17 GM PACK PO SCH (08:02)
[2021-10-14] MEDS: INSULIN ASPART PER UNIT SC SCH ×2 (08:02→11:50)
[2021-10-14] MEDS ORDERED: LOSARTAN POTASSIUM 50 MG TAB PO SCH (09:00)
[2021-10-14] MEDS ORDERED: PANTOprazole 40 MG TAB PO SCH (09:00)
[2021-10-14] MEDS ORDERED: ATORVASTATIN 20 MG TAB PO SCH (09:00)
[2021-10-14] MEDS ORDERED: ASPIRIN 81 MG ECTAB PO SCH (09:00)
[2021-10-14] MEDS ORDERED: OMEGA-3 (PURIFIED FISH OIL) 1 GM CAP PO SCH (09:00)
[2021-10-14] MEDS ORDERED: CYANOCOBALAMIN (B-12) 500 MCG TABLET PO SCH (09:00)
[2021-10-14] MEDS ORDERED: CHOLECALCIFEROL 1,000 UNITS 25 MCG TAB PO SCH (09:00)
--- NOTE | 2021-10-14 09:36 | Discharge Summary ---
Date of Service October 14, 2021 Admission HPI Per Admitting Provider The patient was admitted after a PVC ablation by the EP service. He had a complication with a pericardial effusion and tamponade requiring urgent pericardiocentesis. Patient was admitted overnight with the pericardial c atheter in place. The following day the catheter was removed and the patient remained stable for 24 hours and was able to be discharged. Discharge Data Procedures Performed Operation Date: 10/12/21 11:00 Actual Procedures p EPS + Ablation +3D Map for [place] - Ruthie Cornejo DO Operation Date: 10/12/21 17:00 Actual Procedures p Pericardiocentesis - [place] [facility] Course (1) Pericardial effusion: (2) Cardiac tamponade: The patient is able to be discharged today. He has a follow-up appointment with Dr. Espinal on November 08 which she should keep.
== END 2021-10-14 12:31 | disposition home or self-care (01) | DRG 274 ==
LOC: EP 10:11 → 1E 18:33 → 2S 10-13 16:27